=== PATIENT | female | born 1955 | race Caucasian/White ===

== ENCOUNTER → 2017-07-15 | Outpatient (CLI) | payer OTHER ==
--- NOTE | 2017-07-15 12:33 | DIAGNOSTIC IMAGING REPORT ---
EXAMINATION: RENAL ULTRASOUND CLINICAL HISTORY: D17.5 Renal [id number] Urinary urgency COMPARISON STUDY: None FINDINGS: The right kidney measures 10.9 cm. The left kidney measures 11.3 cm. There is no evidence of hydronephrosis. There is an 18 x 17 x 21 mm echogenic mass within the midpole the right kidney. This is consistent with although not specific for the reported history of an angiomyolipoma. On the left, there is a small cluster of parapelvic cysts versus focal dilatation of the lower pole collecting system. No bladder lesions are visualized. Neither ureteral jet was identified. IMPRESSION : 18 x 17 x 21 mm echogenic mass within the midpole the right kidney. This is consistent with although not specific for an angiomyolipoma Electronically signed by: Jose Tucker M.D. 07/15/2017 12:32 PM Dictated Date/Time: 07/15/2017 12:30 PM
== END | disposition home or self-care (01) ==
LOC: C.ULTR 11:40
PROVIDERS: ATTEND Urology
DX: D17.5 Benign lipomatous neoplasm of intra-abdominal organs (principal); R39.15 Urgency of urination